=== PATIENT | female | born 1985 | race Caucasian/White ===

== ENCOUNTER 2020-04-03 15:55 | Emergency (ER) | payer SELFPAY ==
[2020-04-03 16:01] VITALS: BP 131/75; PULSE 111; RESP 18; TEMP 36.9; O2SAT 98; BMI 22.6
--- NOTE | 2020-04-03 16:08 | ED_ITS ---
HPI - Extremity Problem General: Chief complaint: Extremity Problem,Nontraumatic Stated complaint: foot swelling Time Seen by Provider: 04/03/20 16:01 History of Present Illness: HPI Narrative: Patient is a 34-year-old female comes to the ED with left ankle pain and swelling. Pain and swelling started last Friday. It has since progressively more painful. She denies any injury, accident or trauma to cause left ankle pain. Patient does have a past medical history of blood clots. She is taken Excedrin to help with pain. She currently rates the ankle pain 10 out of 10. Associated symptoms: Deny chest pain, fever(s) or rash Review of Systems Const: Denies: fever(s), chills or fatigue Eyes: Denies: change in vision or eye discomfort ENMT: Denies: throat pain, odynophagia, nasal discharge or nasal congestion Card: Denies: chest pain, palpitations, edema, swelling of feet/ankles, dyspnea on exertion or orthopnea Resp: Denies: dyspnea, productive cough or non-productive cough GI: Denies: abdominal pain, nausea, vomiting, diarrhea, constipation or hematochezia : Denies: flank pain, dysuria or hematuria Musc: Reports: joint pain (left ankle pain and swelling) and joint swelling (Left ankle swelling.); Denies: neck pain, back pain or extremity swelling Skin/Breast: Denies: rash or new lesions Neuro: Denies: headache(s), numbness in extremities or weakness in extremities Physical Exam Const: COMMON NORMALS: no acute distress, patient oriented x3 and alert GENERAL APPEARANCE: cooperative and comfortable HENMT: COMMON NORMALS: normocephalic HEAD & SCALP: normocephalic MOUTH: Normal oral and palatal mucosa present THROAT: posterior oropharynx normal and uvula midline Eye: COMMON NORMALS: Equal, round and reactive pupils present PUPIL: Yes Equal, round and reactive pupils present Neck/C-Spine: COMMON NORMALS: supple GENERAL: Yes normal visual inspection Resp: COMMON NORMALS: normal respiratory effort, No retractions, No use of accessory muscles and clear to auscultation bilaterally AUSCULTATION: clear t o auscultation bilaterally Cardio: COMMON NORMALS: regular rate, regular rhythm, S1 normal heart sound present, S2 normal heart sound present, No gallops present (Cardio), No clicks present (Cardio), No murmurs present (Cardio) and Peripheral pulses 2+ throughout RATE: regular rate RHYTHM: regular rhythm HEART SOUNDS: S1 normal heart sound present and S2 normal heart sound present PERIPHERAL PULSES: Peripheral pulses 2+ throughout GI: COMMON NORMALS: Normal to inspection, nondistended, normoactive bowel sounds present, Soft to palpation, non-tender and no masses PALPATION: Yes Soft to palpation : COMMON NORMALS: Yes no CVA tenderness BLADDER/KIDNEY EXAM: Yes no CVA tenderness Back/Pelvis: COMMON NORMALS: no CVA tenderness Extremity: LEFT LOWER EXTREMITY: Yes ankle joint Left ankle: Yes inspection (Lateral aspect of ankle is swollen and has some erythema and warmth of skin.), Yes palpation (Tender upon palpation of the lateral aspect of ankle.), Yes ROM (limited due to pain) and Yes neurovascular exam (intact) Neuro: COMMON NORMALS: patient oriented x3 and moves all extremities SENSORIUM/ORIENTATION: Yes alert Skin: NARRATIVE SKIN EXAM: Patient has some swelling, tenderness, erythema and warmth on the skin over the lateral left ankle. Possible cellulitis. GENERAL SKIN EXAM: dry skin Course Vital Signs: Vital signs: Vital Signs Temperature 98.5 F 04/03/20 16:01 Pulse Rate 101 H 04/03/20 17:50 Respiratory Rate 18 04/03/20 17:50 Blood Pressure 129/76 04/03/20 17:50 Pulse Oximetry 98 04/03/20 17:50 MDM - Extremity (Nontraumatic) MDM Narrative: Medical decision making narrative: Patient is a 34-year-old female that comes to the ED with left foot/ankle pain. Patient has a past medical history of blood clots. Patient denies any acute injury, accident or trauma to cause left ankle pain. Physical exam shows some Patient has some swelling, tenderness, erythema and warmth on the skin over the lateral left ankle. Possible cellulitis. X-ray was performed and showed no acute fractures. Ultrasound venous duplex of the left lower extremity was negative for any blood clot or DVT. Patient diagnosed with cellulitis based off of physical exam and given a prescription of Bactrim. Patient told to follow-up with PCP in 5 to 7 days for reevaluation. Return to ED if symptoms worsen. Imaging Data^: Xray Ortho: Attestation: I personally reviewed and interpreted this imaging study as foll ows: Radiologist's impression: [facility] [address] [place] [address] XRay Report Signed Patient: Amarilys Hassan Unit #: [id number] : 1985 Age/Sex: 34 / F ADM Date: 04/03/20 Loc: ER Room/Bed: Attending Dr: Ordering Provider/Ordering MD: Jason Andujar Date of Service: 04/03/20 Procedure(s): XR ankle LT min 3V* [id number] Accession Number(s): [id number] Report Number: [id number] WS: [id number] Left ankle, 3 views, 04/03/2020 Clinical Data: ankle pain and swelling Comparison: None. Findings: No fractures or dislocations are seen. The ankle mortise is normal. The talus and calcaneus are unremarkable. No soft tissue swelling over the medial or lateral malleolus is seen. XR/XR ankle LT min 3V* [id number] Impression: Negative left ankle. Dictated By: Trina Sharma MD Signed By: Trina Sharma MD Signed Date/Time: 04/03/201644 DD/ 43 Vascular: Attestation: I personally reviewed and interpreted this imaging study as follows: My impression: Ultrasound venous duplex of the left lower extremity?prelim report showed no DVTs or blood clots seen. Discharge Plan Discharge Patient Disposition: Home, Self-Care Clinical Impression: Cellulitis Qualifiers: Site of cellulitis: extremity Site of cellulitis of extremity: lower extremity Laterality: left Qualified Code(s): L03.116 - Cellulitis of left lower limb Condition: Stable Prescriptions: New sulfamethoxazole-trimethoprim 800-160 mg tablet 1 tab PO BID 7 Days Qty: 14 RF: 0 Discharge Orders: Discharge Order (Routine); Ordered 04/03/20 Ordered By: Jason Andujar Discharge Diet: Regular Discharge Activity: Increase activity as tolerated Patient Instructions: Cellulitis (ED) Activity Restrictions/Additional Instructions: Follow-up with medical provider as directed in 5-7 days. Take medication as prescribed. Take [id number] ibuprofen for pain. Return to the ER or your medical provider if condition worsens. Please read and understand discharge instructions. If any questions, please ask. Discharge Date/Time: 04/03/20 17:52 Coding Level of Care Code ED Livestock Agent for Chg Fwd Exam Comprehensive
--- NOTE | 2020-04-03 16:26 | USCV_ITS ---
Amarilys Hassan Age: 34 Gender: F : 1985 Exam Date: 04/03/2020 16:30 Ordering Phys: Jason Andujar Technologist: Omar Tripp [place] [facility] [place]ication: LEFT LOWER LEG SWELLING AND PAIN PROCEDURES: Venous duplex imaging was performed in only the left lower extremity. The following venous structures were evaluated: common femoral vein, profunda vein, proximal portion of the greater saphenous vein, superficial femoral vein, and the popliteal vein. In addition, the posterior tibial and peroneal trunk were evaluated. Serial compression, augmentation maneuvers, and spectral Doppler flow evaluation were performed. Lymph node appearing area located in left groin. FINDINGS: Normal 2-D Doppler and augmentation and compressibility throughout the lower extremity venous structures. Additional imaging through the proximal calf veins also reveals no thrombus. Limited evaluation of the greater saphenous vein is patent with no thrombus.. CONCLUSIONS No evidence of left lower extremity DVT. Stephen Ocasio MD (Electronically Signed) Final Date: 05 April 2020 10:48 S
--- NOTE | 2020-04-03 16:26 | XR_ITS ---
WS: [id number] Left ankle, 3 views, 04/03/2020 Clinical Data: ankle pain and swelling Comparison: None. Findings: No fractures or dislocations are seen. The ankle mortise is normal. The talus and calcaneus are unrem arkable. No soft tissue swelling over the medial or lateral malleolus is seen. XR/XR ankle LT min 3V* [id number] Impression: Negative left ankle.
[2020-04-03] MEDS: HYDROcodone-acetaminophen 7.5-325 mg Tablet 1 TAB PO (16:37)
[2020-04-03] MEDS: sulfamethoxazole-trimeth DS 160-800 mg Tablet 1 TAB PO (17:43)
--- NOTE | 2020-04-03 17:48 | PC.NURSE ---
patient had her own crutches
[2020-04-03 17:50] VITALS: BP 129/76; PULSE 101; RESP 18; O2SAT 98
== END 2020-04-03 17:52 | disposition home or self-care (01) ==
PROVIDERS: Emergency Provider Physician Assistant
DX: L03.116 Cellulitis of left lower limb (principal)
CPT/HCPCS: 12345; 73610; 93971; 99281; 99283

== ENCOUNTER 2022-10-05 18:20 | Emergency (ER) | payer OTHER, BC, SELFPAY ==
[2022-10-05 18:30] VITALS: BP 117/80; PULSE 107; RESP 18; TEMP 36.5; O2SAT 96
--- NOTE | 2022-10-05 19:07 | XRR_ITS ---
PROCEDURE INFORMATION: Exam: XR Chest Exam date and time: 10/05/2022 7:18 PM Age: 37 years old Clinical indication: Patient HX: Chest pain, cough, congestion, onset two weeks ago TECHNIQUE: Imaging protocol: Radiologic exam of the chest. Views: 2 views. COMPARISON: No relevant prior studies available. FINDINGS: Lungs: Unremarkable. No consolidation. Pleural spaces: Unremarkable. No pleural effusion. No pneumothorax. Heart/Mediastinum: Unremarkable. No cardiomegaly. Bones/joints: Unremarkable. XR/XR chest 2V* [id number] IMPRESSION: No acute findings.
[2022-10-05 19:08] VITALS: BP 120/78; PULSE 105; RESP 18; O2SAT 96
--- NOTE | 2022-10-05 19:11 | ECG_ITS ---
[facility] Test Date: 2022-10-05 Pat Name: Amarilys Hassan Department: Room: Gender: Female Tree Feller: : 1985 Requested By: Robbin Castillo Order Number: [id number] Don MD: Pancho Finn M.D. Measurements Intervals Pacific Rate: 98 P: 47 NM: 149 QRS: 86 QRSD: 89 T: 54 QT: 332 QTc: 424 Interpretive Statements SINUS RHYTHM No previous ECG available for comparison Electronically Signed On 10-06-2022 10:06:08 PATIENT FINANCIAL SPECIALIST by Pancho Finn M.D. [id number]
--- NOTE | 2022-10-05 19:14 | ED_ITS ---
HPI - URI/Sore Throat General: Chief Complaint: Upper Respiratory Infection Stated Complaint: CP, SOB Time Seen by Provider: 10/05/22 18:54 Source: patient Mode of arrival: ambulatory Limitations: no limitations History of Present Illness: 37-year-old female states over last 2 weeks she has had cough along with some wheezing she is a smoker. States that she been having a sharp left-sided chest pain over the last 2 days with her cough. States is worse with coughing and with palpation she denies any fever denies any vomiting or diarrhea. Associated symptoms: Reports chest pain; Deny abdominal pain, chills, diarrhea, fever(s), headache(s), nausea or vomiting Review of Systems Const: Denies: fever(s), chills, body aches or change in appetite Eyes: Denies: blurry vision or eye discomfort ENMT: Denies: throat pain or dental pain Card: Reports: chest pain Resp: Reports: dyspnea, non-productive cough and wheezing GI: Denies: abdominal pain, nausea, vomiting or diarrhea : Denies: dysuria Musc: Denies: neck pain or back pain Skin/Breast: Denies: rash Neuro: Denies: headache(s) Psych: Denies: depression Manan/Lymph: Denies: easy bruising All/Imm: Denies: urticaria PFSH ED PFSH: Medical History (Updated 10/05/22 @ 20:26 by Robbin Castillo MD) No pertinent past medical history Social History (Updated 10/05/22 @ 19:16 by Robbin Castillo MD) Smoking and tobacco status: current every day smoker Physical Exam Const: COMMON NORMALS: no acute distress, patient oriented x3 and healthy appearing HENMT: COMMON NORMALS: normocephalic and atraumatic HEAD & SCALP: no rmocephalic and atraumatic Eye: COMMON NORMALS: Equal, round and reactive pupils present and EOMs intact bilaterally PUPIL: Yes Equal, round and reactive pupils present Neck/C-Spine: COMMON NORMALS: full ROM and supple Chest: COMMONS NORMALS: normal inspection of the chest and normal palpation of entire chest wall Resp: COMMON NORMALS: normal respiratory effort, No retractions, No use of accessory muscles and clear to auscultation bilaterally AUSCULTATION: clear to auscultation bilaterally and wheezes Cardio: COMMON NORMALS: regular rate, regular rhythm and No murmurs present (Cardio) RATE: regular rate RHYTHM: regular rhythm GI: COMMON NORMALS: Normal to inspection, nondistended, normoactive bowel sounds present, Soft to palpation, non-tender and no masses PALPATION: Yes Soft to palpation Extremity: COMMON NORMALS: normal to inspection and full ROM Neuro: COMMON NORMALS: patient oriented x3, moves all extremities and no focal motor deficits Psych: COMMON NORMALS: mental status grossly normal, Normal thought process present and cooperative THOUGHT PROCESS: Normal thought process present Skin: COMMON NORMALS: no rashes or lesions noted and no wounds GENERAL SKIN EXAM: no rashes or lesions noted Course Vital Signs: Vital signs: Vital Signs Temperature 97.7 F 10/05/22 18:30 Pulse Rate 102 H 10/05/22 20:14 Respiratory Rate 22 H 10/05/22 20:14 Blood Pressure 99/62 10/05/22 20:13 Pulse Oximetry 99 10/05/22 20:14 Oxygen Delivery Me thod 10/05/22 20:14 MDM - URI/Sore Throat Medical Decision Making Patient presented her cough is likely bronchitis she is longtime smoker she feels improved after breathing treatment did give her Decadron as well she has chest wall pain no signs of coronary artery disease or pulm embolism her troponin EKG and x-ray are all normal we will place her on albuterol Naprosyn for home did give her Decadron here. Lab Data 10/05/22 19:25 10/05/22 19:25 Radiology Impressions Chest X-Ray 10/05/22 19:07 IMPRESSION: No acute findings. Laboratory Results WBC 9.6 10^3/uL (4.0-10.0) 10/05/22 19:25 RBC 5.06 10^6/uL (4.1-5.3) 10/05/22 19:25 Hgb 15.9 g/dL (11.5-15.3) H 10/05/22 19:25 Hct 46.7 % (37.0-47.0) 10/05/22 19:25 MCV 92.3 fl (81-99) 10/05/22 19:25 MCH 31.4 pg (28.0-34.0) 10/05/22 19:25 MCHC 34.0 g/dL (30.0-36.0) 10/05/22 19:25 RDW 12.1 % (12.1-15.1) 10/05/22 19:25 Plt Count 380 10^3/cmm (130-400) 10/05/22 19:25 MPV 8.8 fL (7.4-10.4) 10/05/22 19:25 Neut % (Auto) 54.5 % 10/05/22 19:25 Lymph % (Auto) 29.2 % 10/05/22 19:25 Preble % (Auto) 9.3 % 10/05/22 19:25 Eos % (Auto) 5.2 % 10/05/22 19:25 Baso % (Auto) 1.0 % 10/05/22:25 Neut # (Auto) 5.19 10^3/uL (1.8-7.7) 10/05/22 19:25 Lymph # (Auto) 2.8 10^3/uL (0.8-4.8) 10/05/22 19:25 Preble # (Auto) 0.9 10^3/uL (0.2-0.9) 10/05/22 19:25 Eos # (Auto) 0.5 10^3/uL (0.0-0.8) 10/05/22 19:25 Baso # (Auto) 0.1 10^3/uL (0.0-0.1) 10/05/22 19:25 Nucleated RBC % (auto) 0 % 10/05/22 19:25 Nucleated RBCs # 0.0 /100WBC 10/05/22 19:25 Sodium 138 mmol/L (136-145) 10/05/22 19:25 Potassium 3.9 mmol/L (3.5-5.1) 10/05/22 19:25 Chloride 98 mmol/L (98-107) 10/05/22 19:25 Carbon Dioxide 28 mmol/L (22-29) 10/05/22 19:25 Anion Gap 15.9 (5-19) 10/05/22 19:25 BUN 19 mg/dL (6-20) 10/05/22 19:25 Creatinine 0.6 mg/dL (0.5-0.9) 10/05/22 19:25 GFR Calculation 111.3 mL/min (90-130) 10/05/22 19:25 Glucose 101 mg/dL (65-115) 10/05/22 19:25 Calculated Osmolality 288 mOsm/kg (285-295) 10/05/22 19:25 Calcium 9.2 mg/dL (8.5-10.5) 10/05/22 19:25 Total Bilirubin 0.3 mg/dL (0.15-1.2) 10/05/22 19:25 AST 29 U/L (0-32) 10/05/22 19:25 ALT 82 U/L (0-33) H 10/05/22 19:25 Alkaline Phosphatase 81 U/L (35-105) 10/05/22 19:25 Troponin T Baseline 6 ng/L (0-10) 10/05/22 19:25 Total Protein 7.7 g/dL (6.6-8.7) 10/05/22 19:25 Albumin 4.1 g/dL (3.5-5.2) 10/05/22 19:25 Globulin 3.6 g/dL (1.3-4.6) 10/05/22 19:25 EKG Data EKG 1: I personally reviewed and interpreted this EKG as follows: EKG interpretation date: 10/05/22 EKG interpretation time: 19:20 Interpretation: nsr hr [address] or t wave abnormalities qrs 89 qtc 387 Discharge Plan Discharge Patient Disposition: Home Clinical Impression: Upper respiratory infection Prescriptions: New Naprosyn 500 mg tablet 500 mg PO BID PRN (Reason: pain) Qty: 20 0RF albuterol sulfate 90 mcg/actuation HFA aerosol inhaler 2 inh INHALATION Q6H PRN (Reason: shortness of breath or wheezing) Qty: 8 0RF Discharge Orders: Discharge ED (Routine); Ordered 10/05/22 Ordered By: Robbin Castillo Discharge Diet: Advance as tolerated Discharge Activity: Resume usual activity Patient Instructions: Upper Respiratory Infection (ED) Coding Level of Care Code ED Impregnating Helper for Ferming Fwd Exam Comprehensive
[2022-10-05 19:30] LABS: Basophils # 0.1 10^3/uL (0.0-0.1); Eosinophils # 0.5 10^3/uL (0.0-0.8); Eosinophils % 5.2 %; Hematocrit 46.7 % (37.0-47.0); Hemoglobin 15.9 g/dL (11.5-15.3); Lymphocytes # 2.8 10^3/uL (0.8-4.8); Lymphocytes % 29.2 %; Mean Corpuscular Hemoglobin 31.4 pg (28.0-34.0); Mean Corpuscular Volume 92.3 fl (81-99); Mean Platelet Volume 8.8 fL (7.4-10.4); Monocytes # 0.9 10^3/uL (0.2-0.9); Monocytes % 9.3 %; Neutrophils # 5.19 10^3/uL (1.8-7.7); Neutrophils % 54.5 %; Nucleated Red Blood Cells % 0 %; Platelet Count 380 10^3/cmm (130-400); Red Blood Count 5.06 10^6/uL (4.1-5.3); Red Cell Distribution Width 12.1 % (12.1-15.1); White Blood Count 9.6 10^3/uL (4.0-10.0)
[2022-10-05] MEDS: dexamethasone 10 mg/mL INJ IVP (19:42)
[2022-10-05 19:53] LABS: Alanine Aminotransferase 82 U/L (0-33); Albumin Level 4.1 g/dL (3.5-5.2); Alkaline Phosphatase 81 U/L (35-105); Anion Gap 15.9 (5-19); Aspartate Amino Transferase 29 U/L (0-32); Blood Urea Nitrogen 19 mg/dL (6-20); Calcium 9.2 mg/dL (8.5-10.5); Carbon Dioxide 28 mmol/L (22-29); Chloride 98 mmol/L (98-107); Globulin 3.6 g/dL (1.3-4.6); Glomerular Filtration Rate 111.3 mL/min (90-130); Glucose 101 mg/dL (65-115); Osmolality Calculated 288 mOsm/kg (285-295); Potassium 3.9 mmol/L (3.5-5.1); Sodium 138 mmol/L (136-145); Total Bilirubin 0.3 mg/dL (0.15-1.2); Total Protein 7.7 g/dL (6.6-8.7)
[2022-10-05] MEDS: albuterol 2.5 mg/3 mL Neb INHALATION (20:12)
[2022-10-05 20:13] VITALS: BP 99/62; PULSE 108; RESP 18; O2SAT 100
[2022-10-05 20:14] VITALS: PULSE 102; RESP 22; O2SAT 99
[2022-10-05 20:19] LABS: Troponin(5th) Baseline 6 ng/L (0-10)
[2022-10-05 20:30] VITALS: BP 100/72; PULSE 102; RESP 16; O2SAT 94
== END 2022-10-05 20:53 | disposition home or self-care (01) ==
PROVIDERS: Emergency Provider Emergency Medicine
DX: J06.9 Acute upper respiratory infection, unspecified (principal); F17.210 Nicotine dependence, cigarettes, uncomplicated
CPT/HCPCS: 71046; 80053; 84484; 85025; 93005; 94640; 96374; 99285; J1100; J7613

== ENCOUNTER 2022-12-08 14:51 | Emergency (ER) | payer BC, SELFPAY ==
[2022-12-08 14:57] VITALS: BP 157/98; PULSE 99; RESP 19; TEMP 36.8; O2SAT 96; BMI 27.1
--- NOTE | 2022-12-08 15:09 | W.ED.WOUNDLC ---
HPI - Wound/Laceration General: Chief Complaint: Wound/Laceration Stated Complaint: middle finger lac on right hand Time Seen by Provider: 12/08/22 15:03 Source: patient Mode of arrival: ambulatory Limitations: no limitations History of Present Illness: 37-year-old female states she had cut her right middle finger on a vase yesterday morning. Does have a 2 cm laceration to the tip of her middle finger she is not up-to-date on tetanus she denies any bleeding at this time denies any fevers or redness has slight pain she rates a 2 out of 10 is worse with movement. Associated symptoms: Denies chills, fever(s), nausea or vomiting Review of Systems Const: Denies: fever(s), chills, body aches or change in appetite Eyes: Denies: blurry vision or eye discomfort ENMT: Denies: throat pain or dental pain Card: Denies: chest pain Resp: Denies: dyspnea GI: Denies: abdominal pain, nausea, vomiting or diarrhea : Denies: dysuria Musc: Reports: extremity pain Skin/Breast: Denies: rash Neuro: Denies: headache(s) Psych: Denies: depression Manan/Lymph: Denies: easy bruising All/Imm: Denies: urticaria PFSH ED PFSH: Medical History No pertinent past medical history Social History Smoking and tobacco status: current every day smoker Physical Exam Const: COMMON NORMALS: no acute distress and patient oriented x3 HENMT: COMMON NORMALS: normocephalic and atraumatic HEAD & SCALP: normocephalic and atraumatic Eye: COMMON NORMALS: conjunctivae normal CONJUNCTIVA: Yes conjunctivae normal Neck/C-Spine: COMMON NORMALS: supple Chest: COMMONS NORMALS: normal inspection of the chest Resp: COMMON NORMALS: normal respiratory effort Cardio: COMMON NORMALS: regular rate RATE: regular rate GI: INSPECTION: Yes normal to inspection Extremity: NARRATIVE EXTREMITY EXAM: 1.5 cm laceration to the distal tip of index finger superficial in nature does not involve any tendons or nerves or vessels Neuro: COMMON NORMALS: patient oriented x3 Psych: COMMON NORMALS: mental status grossly normal Skin: COMMON NORMALS: no rashes or lesions noted GENERAL SKIN EXAM: no rashes or lesions noted Course Vital Signs: Vital signs: Vital Signs Temperature 98.2 F 12/08/22 14:57 Pulse Rate 99 12/08/22 14:57 Respiratory Rate 19 H 12/08/22 14:57 Blood Pressure 157/98 12/08/22 14:57 Pulse Oximetry 96 12/08/22 14:57 Oxygen Delivery Me thod 12/08/22 14:57 MDM - Wound/Laceration Medical Decision Making Patient presents here with laceration to the distal tip of her right middle finger the lacerations roughly 30 hours old will not close at this point with it being so old due to risk of infection should close fine with secondary intention we will place her on antibiotics gave her tetanus she is return if worsening she understands agrees to plan. Discharge Plan Discharge Patient Disposition: Home Clinical Impression: Laceration Condition: Stable Prescriptions: New cephalexin 500 mg capsule 500 mg PO TID 7 Days Qty: 21 0RF No Action Naprosyn 500 mg tablet 500 mg PO BID PRN (Reason: pain) Qty: 20 0RF albuterol sulfate 90 mcg/actuation HFA aerosol inhaler 2 inh INHALATION Q6H PRN (Reason: shortness of breath or wheezing) Qty: 8 0RF Discharge Orders: Discharge ED (Routine); Ordered 12/08/22 Ordered By: Robbin Castillo Discharge Diet: Advance as tolerated Discharge Activity: Resume usual activity Patient Instructions: Laceration Without Closure (ED) Coding Level of Care Code ED Mobile Paint Specialist for Abdias Deluna
[2022-12-08] MEDS: tetanus-dipt-pertussis 0.5 mL SDV IM (15:17)
[2022-12-08 15:25] VITALS: PULSE 74; RESP 16; O2SAT 95
--- NOTE | 2022-12-12 11:19 | DCPLANNER ---
Addendum entered by Radha Laird 12/12/22 13:14: manager zone called patient due to no primary care physician - no answer at this time Original Note: 12.11.22 - TCM called patient due to no primary care physician - no answer at this time
== END 2022-12-08 15:26 | disposition home or self-care (01) ==
PROVIDERS: Emergency Provider Emergency Medicine
DX: S61.212A Laceration without foreign body of right middle finger without damage to nail, initial encounter (principal); F17.210 Nicotine dependence, cigarettes, uncomplicated; W25.XXXA Contact with sharp glass, initial encounter; Z23 Encounter for immunization
CPT/HCPCS: 90471; 90715; 99283

== ENCOUNTER 2023-09-29 13:23 | Emergency (ER) | payer BC, MEDICAID, SELFPAY ==
[2023-09-29 13:41] VITALS: BP 115/76; PULSE 101; RESP 14; TEMP 36.7; O2SAT 97; BMI 23.5
[2023-09-29 13:58] LABS: Basophils # 0.1 10^3/uL (0.0-0.1); Basophils % 0.8 %; Eosinophils # 0.5 10^3/uL (0.0-0.8); Eosinophils % 6.3 %; Hematocrit 45.9 % (36-47); Lymphocytes # 2.7 10^3/uL (0.8-4.8); Lymphocytes % 38.1 %; Mean Corpuscular HGB Conc 33.8 g/dL (30-55); Mean Corpuscular Hemoglobin 31.1 pg (27-33); Mean Platelet Volume 8.9 fL (7.4-10.4); Monocytes # 0.7 10^3/uL (0.2-0.9); Monocytes % 10.3 %; Neutrophils # 3.14 10^3/uL (1.8-7.7); Neutrophils % 44.2 %; Nucleated Red Blood Cells % 0 %; Platelet Count 315 10^3/cmm (157-399); Red Blood Count 4.99 10^6/uL (3.85-5.65); White Blood Count 7.11 10^3/uL (3.29-11.43)
[2023-09-29 14:14] LABS: HCG, Serum Qual Negative (Negative)
--- NOTE | 2023-09-29 16:32 | USR_ITS ---
PROCEDURE INFORMATION: Exam: US Nonobstetric Pelvis; Complete Exam date and time: 09/29/2023 4:39 PM Age: 38 years old Clinical indication: Condition or disease; Other: Bleeding; Additional info: Vag bleeding LABS AND CLINICAL REPORTS: Last menstrual period start date: Unknown TECHNIQUE: Imaging protocol: Transabdominal pelvic nonobstetric ultrasound. Complete exam. Real time ultrasound with image documentation. COMPARISON: No relevant prior studies available. FINDINGS: Uterus: The uterus measures 9.9 x 6.3 x 5.4 cm. Endometrial thickness is 4 mm. No abnormalities are seen. Right ovary/adnexa: The right ovary measures 2.1 x 1.7 x 2.1 cm. No mass. Blood flow is documented. Left ovary/adnexa: The left ovary measures 2.3 x 1.8 x 1.7 cm. No mass. Blood flow is documented. Intraperitoneal space: No intraperitoneal fluid. Urinary bladder: Normal. US/US pelvic complete* [id number] IMPRESSION: 1. Unremarkable pelvic ultrasound. 2. The patient reportedly declined transvaginal imaging.
[2023-09-29] MEDS: sodium chloride 0.9% 1,000 ML 999 ML IV (17:00)
--- NOTE | 2023-09-29 17:04 | ED_ITS ---
HPI - Female Genitourinary 2 General: Chief complaint: Urogenital-Female Stated complaint: Vag bleeding Time Seen by Provider: 09/29/23 16:32 Source: patient Mode of arrival: ambulatory Limitations: no limitations History of Present Illness: 38-year-old female states that she has b een on her menstruation the last 2 days and she has had heavy bleeding. Patient states that she has been going through multiple tampons today and passing some clots. She has had heavy menstruation in the past she denies any severe pain denies any vomiting or diarrhea. Associated symptoms: Deny abdominal pain, headache(s) or nausea Review of Systems 2 Const: Denies: fever(s), chills, body aches or change in appetite Eyes: Denies: blurry vision or eye discomfort ENMT: Denies: throat pain or dental pain Card: Denies: chest pain Resp: Denies: dyspnea GI: Denies: abdominal pain, nausea, vomiting or diarrhea : Reports: vaginal bleeding Musc: Denies: neck pain or back pain Skin/Breast: Denies: rash Neuro: Denies: headache(s) PFSH ED 2 PFSH: Medical History No pertinent past medical history Social History Smoking and tobacco/nicotine status: current every day tobacco/nicotine user Physical Exam 2 Const: COMMON NORMALS: no acute distress, patient oriented x3 and healthy appearing HENMT: COMMON NORMALS: normocephalic and atraumatic HEAD & SCALP: n ormocephalic and atraumatic Eye: COMMON NORMALS: Equal, round and reactive pupils present and EOMs intact bilaterally PUPIL: Yes Equal, round and reactive pupils present Neck/C-Spine: COMMON NORMALS: full ROM and supple Chest: COMMONS NORMALS: normal inspection of the chest and normal palpation of entire chest wall Resp: COMMON NORMALS: normal respiratory effort, No retractions, No use of accessory muscles and clear to auscultation bilaterally AUSCULTATION: clear to auscultation bilaterally Cardio: COMMON NORMALS: regular rate, regular rhythm and No murmurs present (Cardio) RATE: regular rate RHYTHM: regular rhythm GI: COMMON NORMALS: Normal to inspection, nondistended, normoactive bowel sounds present, Soft to palpation, non-tender and no masses PALPATION: Yes Soft to palpation Extremity: COMMON NORMALS: normal to inspection and full ROM Neuro: COMMON NORMALS: patient oriented x3, moves all extremities and no focal motor deficits Psych: COMMON NORMALS: mental status grossly normal, Normal thought process present and cooperative THOUGHT PROCESS: Normal thought process present Skin: COMMON NORMALS: no rashes or lesions noted and no wounds GENERAL SKIN EXAM: no rashes or lesions noted Course 2 Vital Signs: Vital signs: Vital Signs Temperature 98.1 F 09/29/23 13:41 Pulse Rate 101 H 09/29/23 13:41 Respiratory Rate 14 09/29/23 13:41 Blood Pressure 115/76 09/29/23 13:41 Pulse Oximetry 97 09/29/23 13:41 Oxygen Delivery Me thod Room Air 09/29/23 13:41 MDM - Female Medical Decision Making Patient presents here with vaginal bleeding her hemoglobin here is normal white counts normal abdominal exam is benign ultrasound is normal as wel she is stable for discharge follow-up with OB and return if worsening. Medical Records I reviewed the patient's medical records. Lab Data I reviewed the patient's lab results. 09/29/23 13:50 Radiology Impressions Pelvis Ultrasound 09/29/23 16:32 IMPRESSION: 1. Unremarkable pelvic ultrasound. 2. The patient reportedly declined transvaginal imaging. Laboratory Results WBC 7.11 10^3/uL (3.29-11.43) 09/29/23 13:50 RBC 4.99 10^6/uL (3.85-5.65) 09/29/23 13:50 Hgb 15.50 g/dL (11.27-16.99) 09/29/23 13:50 Hct 45.9 % (36-47) 09/29/23 13:50 MCV 92.0 fl (85-98) 09/29/23 13:50 MCH 31.1 pg (27-33) 09/29/23 13:50 MCHC 33.8 g/dL (30-55) 09/29/23 13:50 RDW 12.0 % (12.1-15.1) L 09/29/23 13:50 Plt Count 315 10^3/cmm (157-399) 09/29/23 13:50 MPV 8.9 fL (7.4-10.4) 09/29/23 13:50 Neut % (Auto) 44.2 % 09/29/23 13:50 Lymph % (Auto) 38.1 % 09/29/23 13:50 [place] % (Auto) 10.3 % 09/29/23 13:50 Eos % (Auto) 6.3 % 09/29/23 13:50 Baso % (Auto) 0.8 % 09/29/23 13:50 Neut # (Auto) 3.14 10^3/uL (1.8-7.7) 09/29/23 13:50 Lymph # (Auto) 2.7 10^3/uL (0.8-4.8) 09/29/23 13:50 [place] # (Auto) 0.7 10^3/uL (0.2-0.9) 09/29/23 13:50 Eos # (Auto) 0.5 10^3/uL (0.0-0.8) 09/29/23 13:50 Baso # (Auto) 0.1 10^3/uL (0.0-0.1) 09/29/23 13:50 Nucleated RBC % (auto) 0 % 09/29/23 13:50 Nucleated RBCs # 0.0 /100WBC 09/29/23 13:50 HCG, Qual Negative (Negative) 09/29/23 13:50 All radiology interpretation(s) finalized by discharge Discharge Plan Discharge Patient Disposition: Home Clinical Impression: Abnormal vaginal bleeding Condition: Stable Prescriptions: No Action Naprosyn 500 mg tablet 500 mg PO BID PRN (Reason: pain) Qty: 20 0RF albuterol sulfate 90 mcg/actuation HFA aerosol inhaler 2 inh INHALATION Q6H PRN (Reason: shortness of breath or wheezing) Qty: 8 0RF Discharge Orders: Discharge ED (Routine); Ordered 09/29/23 Ordered By: Robbin Castillo Referrals: Tripp Newsome MD [Physician] - 1-3 days Discharge Diet: Advance as tolerated Discharge Activity: Resume usual activity Patient Instructions: Abnormal (Dysfunctional) Uterine Bleeding (ED) Coding Level of Care Code ED [employer]
--- NOTE | 2023-09-30 08:48 | DCPLANNER ---
Message sent to OBGYN for follow up appointment for vag bleeding
== END 2023-09-29 17:51 | disposition home or self-care (01) ==
PROVIDERS: Emergency Provider Emergency Medicine
DX: N93.9 Abnormal uterine and vaginal bleeding, unspecified (principal); Z72.0 Tobacco use
CPT/HCPCS: 36415; 76856; 84703; 85025; 96360; 99284; J7030